=== PATIENT | female | born 1995 | race Caucasian/White ===

== ENCOUNTER 2024-03-08 15:52 | Emergency (ER) | payer OTHER, SELFPAY ==
[2024-03-08 15:57] VITALS: BP 152/83
[2024-03-08 16:44] LABS: % Basophils 0.8 % (0-2); % Immature Granulocytes 0.3 % (0-0.5); % Lymphocytes 25.4 % (20.5-51.1); % Monocytes 4.7 % (1.7-9.3); % Neutrophils 65.8 % (42.2-75.2); Absolute Basophils 0.1 10^3/uL (0-0.2); Absolute Eosinophils 0.2 10^3/uL (0-0.7); Absolute Lymphocytes 1.9 10^3/uL (1.2-3.4); Absolute Monocytes 0.4 10^3/uL (0.1-0.6); Hematocrit 40.9 % (37.0-47.0); Hemoglobin 13.9 g/dL (12.0-16.0); Mean Corpuscular Hgb 30.1 pg (27.0-31.0); Mean Corpuscular Volume 88.5 fL (81.0-99.0); Nucleated Red Blood Cells % 0 %; Platelet Count 265 10^3/uL (130-400); Red Blood Cell Count 4.62 10^6/uL (4.20-5.40); Red Cell Dist. Width 12.4 % (11.5-14.5); White Blood Cell Count 7.6 10^3/uL (4.8-10.8)
[2024-03-08 17:07] LABS: ALT (SGPT) 14 U/L (0-35); AST (SGOT) 26 U/L (14-36); Albumin 4.7 g/dl (3.5-5.0); Alkaline Phosphatase 49 U/L (38-126); Blood Urea Nitrogen 13 mg/dl (7-17); Calcium 9.4 mg/dl (8.4-10.2); Carbon Dioxide 25 mmol/L (22-30); Chloride 102 mmol/L (98-107); Glucose 90 mg/dl (70-99); Potassium 3.8 mmol/L (3.5-5.1); Sodium 135 mmol/L (135-145); Total Bilirubin 0.4 mg/dl (0.2-1.3); Total Protein 7.1 g/dl (6.3-8.2); eGFR > 60.00
[2024-03-08 17:41] LABS: Amphetamines Negative (Negative); Barbiturates Negative (Negative); Benzodiazepines Negative (Negative); Buprenorphine Negative (Negative); Cocaine Negative (Negative); Marijuana Negative (Negative); Methadone Negative (Negative); Methamphetamines Negative (Negative); Opiates Negative (Negative); Phencyclidine Negative (Negative); Tricyclic Antidepressants Negative (Negative)
[2024-03-08 18:26] VITALS: BP 123/90
--- NOTE | 2024-03-08 18:43 | ED.GENMED ---
Addendum entered and electronically signed by Lyndsey Romero PA-C 03/11/24 07:34:
Urine culture positive E. coli sensitive to Macrobid which the patient is on, no treatment change required
Original Note:
History of Present Illness
General
Chief Complaint: Urinary Symptoms
Time Seen by Provider: 03/08/24 17:15
History of Present Illness
History of Present Illness:
28-year-old female presents to the Emergency Department for evaluation of urinary frequency that has been ongoing for the past several days. Feels that symptoms began when she began taking clomipramine for OCD, also notes constipation since that
time. Last bowel movement was 2 days ago. Was last treated for a UTI 2 months ago. Denies any concern for sexually transmitted infection. No vaginal discharge
Past History
Past History
ED Past Medical History: Psychiatric
Review of Systems
Review of Systems
Allergies reviewed?: Yes
All Other Systems: ROS reviewed and negative except as documented in HPI and ROS
Phy Exam
Physical Exam
Physical Exam:
GEN: Well appearing, NAD, WDWN
HEENT: Oral mucosa moist, no scleral icterus
Cardiac: Regular rate
Lung: No respiratory distress, no tachypnea
MSK: No gross deformity or injuries
Skin: Good color, no pallor or jaundice, no rashes
Neuro: AO x3, moves all extremities freely
Psych: Calm, cooperative
Course
Orders/Labs/Results
Orders:
Orders
03/08/24 16:11
Complete Blood Count/With Diff Urgent
Comprehensive Metabolic Panel Urgent
Urinalysis Reflex To Culture Urgent
Date Specimen was Collected: 03/08/24
Time Specimen was Collected: 16:00
Comment: ADDON
Urine Drug Abuse Screen Urgent
Date Specimen was Collected: 03/08/24
Time Specimen was Collected: 16:00
Urine Microscopic Reflex Cult Urgent
Urine Culture Urgent
[facility] Source: U
Specimen Description:
Date Specimen was Collected: 03/08/24
Time Specimen was Collected: 16:00
03/08/24 17:02
Add On - Microbiology Urgent
Tests Added?: UA reflex to cx
03/08/24 17:16
Add On- LAB Urgent
Tests Added?: urinalysis
03/08/24 19:20
Magnesium Citrate [Citroma] 300 ml PO ONCE ONE
Abnormal Lab Results
03/08/24
16:11
Ur Occult Blood Reflex 3+ A
(Negative)
Leukocyte Esterase Rfl 2+ A
(Negative)
Urine RBC 7-10 A /HPF
(0-2)
Urine WBC (Reflex) 50-60 A /HPF
(0-5)
Urine Bacteria (Reflex) Moderate A
(Negative)
03/08/24 16:11
03/08/24 16:11
Vital Signs
Initial and Last Documented VS:
Initial Vital Signs
Temp Pulse Resp BP Pulse Ox
99.3 F 128 18 152/83 98
03/08/24 15:57 03/08/24 15:57 03/08/24 15:57 03/08/24 15:57 03/08/24 15:57
Last Documented Vital Signs
Temp Pulse Resp BP Pulse Ox
99.3 F 100 18 123/90 100
03/08/24 15:57 03/08/24 19:33 03/08/24 15:57 03/08/24 18:26 03/08/24 19:33
MDM/Problems Addressed
MDM/Problems Addressed:
Urinalysis is consistent with UTI, educated the patient on treatment for constipation related to her recently initiated psychiatric medication. Will start on nitrofurantoin
*Critical Care Note
Total Time (30-74mins, 75-104mins- exclusive of procedures): Not Applicable
ED Attending Note
-
Portions of this chart may have been created with voice recognition software.� Occasional wrong word or��sound alike� substitutions may have occurred due to the inherent limitations of voice recognition software.
Discharge Plan
Departure
Patient Disposition: Home (Routine Discharge)
Date of Disposition: 03/08/24
Time of Disposition: 19:13
Patient with high blood pressure during this ER visit?: No
Discharge Problem:
Urinary tract infection
Instructions: Urinary Tract Infection, Adult (DC)
Prescriptions:
New
nitrofurantoin macrocrystal 100 mg capsule
100 mg PO BID 5 Days Qty: 10 0RF
No Action
clonazepam 0.5 MG tablet
0.5 mg PO BID Qty: 8 0RF
Referrals:
NONE,* [Family Provider] -
Activity Restrictions/Additional Instructions:
For constipation, try miralax once daily until adequate bowel movements are seen
You should also consider adding colace 100mg twice daily
Increase fiber to 30 grams daily
You may also use Milk of Magnesia or docusate sodium as needed for severe constipation
Interventions
Interventions:
*Risk Screen - Suicide Last Done: 03/08/24 15:57
*General Assessment Last Done: 03/08/24 15:57
*Neglect/Abuse Screening Last Done: 03/08/24 15:57
ED- Fall Risk Assessment Last Done: 03/08/24 19:34
*ED COVID-19 Vaccine History Last Done: 03/08/24 15:57
*Nursing Disposition Last Done: 03/08/24 19:34
ED-Female Genitourinary Assessment Last Done: 03/08/24 19:33
Discharge Date and Time
Discharge Date/Time: 03/08/24 19:35
Print Language: WOLOF
[2024-03-08 18:52] LABS: Urine Albumin Trace (Neg - Trace); Urine Bilirubin Negative (Negative); Urine Character Clear (Clear); Urine Color Straw; Urine Glucose Negative (Negative); Urine Ketone Negative (Negative); Urine Leukocyte 2+ (Negative); Urine Nitrite Negative (Negative); Urine Occult Blood 3+ (Negative); Urine Urobilinogen Negative (Neg - 1+)
[2024-03-08 19:24] LABS: Urine Bacteria Moderate (Negative); Urine White Cell 50-60 /HPF (0-5)
[2024-03-08] MEDS: CITROMA 300 ML PO (19:30)
== END 2024-03-08 19:35 | disposition home or self-care (01) ==
LOC: EMR 15:52
PROVIDERS: Emergency Medicine; EMERGENCY PHYSICIAN Student in an Organized Health Care Education/Training Program
DX: N39.0 Urinary tract infection, site not specified (principal); K59.00 Constipation, unspecified; F42.9 Obsessive-compulsive disorder, unspecified; Z87.440 Personal history of urinary (tract) infections
CPT/HCPCS: 99283; 80053; 80306; 81003; 81015; 85025; 87077; 87086; 87186